=== PATIENT | male | born 1990 | race Caucasian/White ===

== ENCOUNTER 2023-11-01 05:14 | Emergency (ER) | payer OTHER, SELFPAY ==
[2023-11-01 05:16] VITALS: BP 160/102
[2023-11-01 06:24] VITALS: BP 141/96; BMI 37.6
[2023-11-01] MEDS: NSS 1000 IV (06:40)
--- NOTE | 2023-11-01 06:49 | ED.GENMED ---
History of Present Illness
General
Chief Complaint: Abdominal Pain
Source: patient
Exam Limitations: none
Time Seen by Provider: 11/01/23 06:05
Nursing documentation reviewed up to this point in time: agreed with
History of Present Illness
History of Present Illness:
Patient without any significant past medical history, presents to ED secondary to multiple episodes of nonbloody diarrhea after waking up this morning, associated with diffuse abdominal cramping sensation. Patient states that he had same meals as
his all day yesterday, and she is currently having no symptoms. Denies fever or chills. Denies vomiting. Denies recent change in diet. Denies recent travel. Denies sick contact.
Review of Systems
Review of Systems
Allergies reviewed?: Yes
All Other Systems: ROS reviewed and negative except as documented in HPI and ROS
Constitutional: Reports no symptoms; Denies fever or chills
Respiratory: Reports no symptoms
Cardiac: Reports no symptoms
ABD/GI: Reports abdominal pain and diarrhea; Denies nausea, vomiting or bloody stools
: Reports no symptoms
Musculoskeletal: Reports no symptoms
Skin: Reports no symptoms
Neurological: Reports no symptoms
Phy Exam
Physical Exam
Physical Exam:
Physical Exam
General: mild distress, not acutely ill. afebrile
Head: nc/at. eomi
Neck: supple. no meningeal signs.
Heart: s1/s2 regular rate and rhythm, no murmur. equal radial pulses.
Lungs: no acute respiratory distress. clear bilaterally
Abdomen: normal bowel sounds. not tender. no distention
Neuro: alert and oriented. no focal neurological deficits
Skin: no rash
Psychiatric: well kept. interactive and cooperative
Extremities: no edema. no calf tenderness.
Course
Orders/Labs/Results
Orders:
Orders
11/01/23 06:19
0.9% Sodium Chloride 1000 ml [Nss] 1,000 ml IV BOLUS
11/01/23 06:40
Complete Blood Count/With Diff Urgent
Comprehensive Metabolic Panel Urgent
Magnesium Urgent
11/01/23 06:53
Stool Culture Urgent
HAIR Source: Feces/Stool
Specimen Description:
Date Specimen was Collected: 11/01/23
Time Specimen was Collected: 06:46
11/01/23 08:12
0.9% Sodium Chloride 500 ml [Nss] 500 ml IV BOLUS
Abnormal Lab Results
11/01/23
06:40
WBC 13.9 H 10^3/uL
(4.8-10.8)
Abs Immat Gran (auto) 0.1 H 10^3/uL
(0-0.05)
Absolute Neuts (auto) 12.4 H 10^3/uL
(1.4-6.5)
Absolute Lymphs (auto) 0.7 L 10^3/uL
(1.2-3.4)
Absolute Monos (auto) 0.7 H 10^3/uL
(0.1-0.6)
Neutrophils % 89.2 H %
(42.2-75.2)
Lymphocytes % 4.9 L %
(20.5-51.1)
Glucose 127 H mg/dl
(70-99)
11/01/23 06:40
11/01/23 06:40
Vital Signs
Initial and Last Documented VS:
Initial Vital Signs
Temp Pulse Resp BP Pulse Ox
98.2 F 106 20 160/102 98
11/01/23 05:16 11/01/23 05:16 11/01/23 05:16 11/01/23 05:16 11/01/23 05:16
Last Documented Vital Signs
Temp Pulse Resp BP Pulse Ox
98.2 F 111 18 153/79 100
11/01/23 05:16 11/01/23 08:14 11/01/23 06:25 11/01/23 08:08 11/01/23 08:14
MDM/Problems Addressed
MDM/Problems Addressed:
Patient given IV fluids with improvement in symptoms. Leukocytosis, likely reactive. Patient otherwise remains afebrile and nontoxic-appearing.
Stool culture pending. Patient will be discharged home in stable condition, to the care of his family, with recommendation to continue hydration at home.
*Critical Care Note
Total Time (30-74mins, 75-104mins- exclusive of procedures): Not Applicable
ED Attending Note
-
Portions of this chart may have been created with voice recognition software.� Occasional wrong word or��sound alike� substitutions may have occurred due to the inherent limitations of voice recognition software.
Discharge Plan
Departure
Patient Disposition: Home (Routine Discharge)
Date of Disposition: 11/01/23
Time of Disposition: 08:54
Patient with high blood pressure during this ER visit?: Yes
Condition: Good
Discharge Problem:
Diarrhea
Instructions: Diarrhea in teens and adults
Referrals:
Colton Mcfarlane MD [Family Provider] -
Stand Alone Forms: Return to Work
Activity Restrictions/Additional Instructions:
As discussed, please follow-up with your primary care physician with any further concerns.
Interventions
Interventions:
*Risk Screen - Suicide Last Done: 11/01/23 05:16
*General Assessment Last Done: 11/01/23 06:24
*Neglect/Abuse Screening Last Done: 11/01/23 05:16
ED- Fall Risk Assessment Last Done: 11/01/23 09:00
*ED COVID-19 Vaccine History Last Done: 11/01/23 09:00
*Nursing Disposition Last Done: 11/01/23 09:00
NT-Bazdfx-Fixsavkyhh Assessment Last Done: 11/01/23 09:00
Discharge Date and Time
Discharge Date/Time: 11/01/23 09:00
Print Language: MAURITIAN
[2023-11-01 06:52] LABS: % Basophils 0.3 % (0-2); % Eosinophils 0.5 % (0-6); % Immature Granulocytes 0.4 % (0-0.5); % Lymphocytes 4.9 % (20.5-51.1); % Monocytes 4.7 % (1.7-9.3); % Neutrophils 89.2 % (42.2-75.2); Absolute Eosinophils 0.1 10^3/uL (0-0.7); Absolute Immature Granulocytes 0.1 10^3/uL (0-0.05); Absolute Lymphocytes 0.7 10^3/uL (1.2-3.4); Absolute Monocytes 0.7 10^3/uL (0.1-0.6); Absolute Neutrophils 12.4 10^3/uL (1.4-6.5); Hematocrit 44.5 % (39.0-52.0); Hemoglobin 15.2 g/dL (13.0-18.0); Mean Corp Hgb Conc. 34.2 g/dL (33.0-37.0); Mean Corpuscular Hgb 28.1 pg (27.0-31.0); Mean Corpuscular Volume 82.3 fL (80.0-94.0); Mean Platelet Volume 9.2 fL (7.4-10.4); Nucleated Red Blood Cells % 0 % (-); Platelet Count 293 10^3/uL (130-400); Red Blood Cell Count 5.41 10^6/uL (4.70-6.10); Red Cell Dist. Width 13.1 % (11.5-14.5); White Blood Cell Count 13.9 10^3/uL (4.8-10.8)
[2023-11-01 07:04] LABS: ALT (SGPT) 37 U/L (0-50); AST (SGOT) 26 U/L (17-59); Alkaline Phosphatase 104 U/L (38-126); Blood Urea Nitrogen 18 mg/dl (9-20); Calcium 10.2 mg/dl (8.4-10.2); Carbon Dioxide 22 mmol/L (22-30); Chloride 103 mmol/L (98-107); Estimated Creatinine Clearance > 125 ml/min; Glucose 127 mg/dl (70-99); Magnesium 1.9 mg/dl (1.6-2.3); Potassium 4.2 mmol/L (3.5-5.1); Sodium 141 mmol/L (135-145); Total Bilirubin 0.9 mg/dl (0.2-1.3); Total Protein 7.7 g/dl (6.3-8.2); eGFR > 60.00
[2023-11-01 08:08] VITALS: BP 153/79
[2023-11-01] MEDS: NSS 500 IV (08:15)
== END 2023-11-01 09:00 | disposition home or self-care (01) ==
LOC: EMR 05:14
PROVIDERS: EMERGENCY PHYSICIAN Emergency Medicine; FAMILY PHYSICIAN Family Medicine
DX: R19.7 Diarrhea, unspecified (principal); R03.0 Elevated blood-pressure reading, without diagnosis of hypertension
CPT/HCPCS: 99284; 96360; 80053; 83735; 85025; 87045; 87046; 87427